=== PATIENT | male | born 1990 | race Two or more races ===

== ENCOUNTER 2018-09-22 11:23 | Inpatient (IN) | payer MEDICAID ==
[2018-09-23] MEDS ORDERED: ONDANSETRON 4 MG/2 ML VIAL IVP PRN (10:22)
[2018-09-23] MEDS: VANCOMYCIN HCL/NORMAL SALINE 250 ML IV SCH ×2 (11:12→23:21)
[2018-09-23] MEDS: oxyCODONE IR 5 MG TAB PO PRN ×4 (11:16→21:18)
--- NOTE | 2018-09-23 12:31 | NEUSURGPN ---
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 Removed without complication. Patient placed in cervical collar prior to final stabilization ring removed. There is purulent discharge noted at right anterior pin site and facial cellulitis. Plan: Blood cultures CBC ordered Patient should remain in hard cervical collar at all times Will tentatively plan for OR for surgical fusion in the up coming days, once cleared by ID. Awaiting ID consult Discussed with Dr. Vigil Neurosurgery Physical Exam - Vitals, I&O, Labs I and O 09/22/18 09/23/18 09/24/18 05:59 05:59 05:59 Weight 63.503 kg Vital Signs Temp Pulse Resp BP Pulse Ox 36.9 C 89 13 106/72 95 09/23/18 11:32 09/23/18 11:32 09/23/18 11:32 09/23/18 11:32 09/23/18 11:32 ICD10 Worksheet Patient Problems: Problems Problem Status Onset Cellulitis Acute Cervical spine fracture Acute - ICD10 Problem Qualifiers (1) Cervical spine fracture (2) Cellulitis
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
[2018-09-23] MEDS: METHOCARBAMOL 750 MG TAB PO SCH ×2 (16:36→21:18)
--- NOTE | 2018-09-23 17:33 | PDMN ---
Medical Necessity Medical necessity: Pt meets IP criteria as of 09/23/2018 per and MCG M-70 ( cellulitis); est los > 2 mn for ongoing tx and management of facial cellulitis secondary to halo pin site infection; requiring surgical intervention, infectious disease consultation and IV ABX.
[2018-09-23] MEDS ORDERED: IOPAMIDOL (ISOVUE 370) 100 ML BTL IV ONE (18:35)
[2018-09-24] MEDS: oxyCODONE IR 5 MG TAB PO PRN ×5 (00:27→23:59)
--- NOTE | 2018-09-24 07:22 | NEUSURGPN ---
Assessment/Plan: 28 yo male with C2 fracture, infected pin site from Halo. Halo removed and placed in cervical hard collar. Needs posterior C1/2 fusion - neuro stable - pain control - awaiting clearance from ID to proceed with posterior C1/2 fusion - blood cultures NGTD - please contact neurosurgery with changes in neuro status/exam Discussed with Dr. Vigil. Subjective: Doing well this morning. No UE/LE symptoms. Mild neck pain. Objective: Awake. Alert. PERRL. EOMI Facial expression symmetrical- has some left sided facial edema Muscle strength full at 5/5 - Physician Discussed Patient with Dr.: Vigil Neurosurgery Physical Exam - Vitals, I&O, Labs I and O 09/23/18 09/24/18 09/25/18 05:59 05:59 05:59 Weight 63.503 kg Other: Number of Voids Toilet 2 Microbiology 09/23/18 18:30 Gram Stain - Final Scalp - Eswab Vital Signs Temp Pulse Resp BP Pulse Ox 36.7 C 74 15 92/62 L 92 09/24/18 04:00 09/24/18 04:00 09/24/18 04:00 09/24/18 04:00 09/24/18 04:00 Laboratory Results 09/23/18 12:50 09/23/18 17:00 ICD10 Worksheet Patient Problems: Problems Problem Status Onset Cellulitis Acute Cervical spine fracture Acute
--- NOTE | 2018-09-24 08:45 | PCMIDPN ---
Assessment/Plan: # Left facial cellulitis emanating from halo pinhole, improved swelling, erythema today. CT scan showed no abscess --hold off on surgery for now and monitor for more clinical improvement --continue IV vancomycin, will check trough tomorrow and creatinine --check labs in AM --discussed w Dr. Vigil Medications Vancomycin 1 g IV q.12 hours, # 2 Microbiology 09/24 blood cultures (2) pending 09/24 wound culture Gram stain 3+ GPCs 1+ Gram-negative leander Subjective: patient feels pain L face is better no other c/o denies neck pain Objective: Vital Signs Temp Pulse Resp BP Pulse Ox 36.8 C 61 14 101/60 92 09/24/18 07:42 09/24/18 07:42 09/24/18 07:42 09/24/18 07:42 09/24/18 07:42 Microbiology 09/23/18 18:30 Gram Stain - Final Scalp - Eswab Laboratory Results 09/23/18 12:50 09/23/18 17:00 C-Reactive Protein 78.6 mg/L (<10.0) H 09/23/18 17:00 - Physical Exam General Appearance: alert EENT: other (good dentition), No scleral icterus, No thrush Respiratory: lungs clear, No accessory muscle use Neck: other (hard collar in place) Extremities: No pedal edema Abdomen: non-tender, soft Skin: erythema (L face: forehead, eyelids, cheek but fainter than yesterday), other (swelling L face but improved; pinhole L alevism w scab in place) Neuro/Psych: alert, normal mood/affect, oriented x 3 - Line/s PIV Lines: other (L forearm), No drainage, No erythema - Time Spent With Patient Time Spent with Patient: greater than 35 minutes Time Spent with Patient: Greater than 35 minutes spent on this patients care, greater than 50% of time spent counseling, educating, and coordinating care regarding the above mentioned plan. ICD10 Worksheet Patient Problems: Problems Problem Status Onset Cellulitis Acute Cervical spine fracture Acute
[2018-09-24] MEDS: METHOCARBAMOL 750 MG TAB PO SCH ×3 (10:29→22:45)
[2018-09-24] MEDS: VANCOMYCIN HCL/NORMAL SALINE 250 ML IV SCH ×2 (12:09→22:45)
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
[2018-09-25] MEDS: oxyCODONE IR 5 MG TAB PO PRN ×3 (03:57→22:50)
[2018-09-25 06:21] LABS: PLATELET COUNT 283 10^3/uL (150-400)
[2018-09-25] MEDS: ceFAZolin 2 GM/DEXTROSE 100 ML IV SCH ×3 (07:58→21:53)
[2018-09-25] MEDS: METHOCARBAMOL 750 MG TAB PO SCH ×3 (08:01→22:59)
--- NOTE | 2018-09-25 08:27 | PCMIDPN ---
Assessment/Plan: # Left facial cellulitis emanating from halo pinhole, complete resolution of erythema, mild swelling remains. White count has normalized. --patient is cleared for surgery today --adjust antibiotics to cefazolin 2 g IV Q 8. Will use this higher dose today as patient is going to the OR, could step-down tomorrow Medications Vancomycin 1 g IV q.12 hours, # 3 Microbiology 09/24 blood cultures (2) pending 09/24 wound culture Gram stain 3+ GPCs 1+ Gram-negative leander: MSSA Subjective: Patient describes some pain the still at the pin hole from the halo No diarrhea, no rash Objective: Vital Signs Temp Pulse Resp BP Pulse Ox 36.6 C 54 L 14 101/57 L 90 L 09/25/18 08:00 09/25/18 08:00 09/25/18 08:00 09/25/18 08:00 09/25/18 08:00 Microbiology 09/23/18 18:30 Gram Stain - Final Scalp - Eswab Laboratory Results 09/25/18 05:06 09/25/18 05:06 09/24/18 09/25/18 09/26/18 05:59 05:59 05:59 Intake Total 1250 Balance 1250 C-Reactive Protein 78.6 mg/L (<10.0) H 09/23/18 17:00 - Physical Exam General Appearance: alert, no apparent distress, non-toxic EENT: pharynx normal, No scleral icterus Respiratory: No accessory muscle use Neck: other (Wearing cervical collar) Extremities: No pedal edema Skin: other (Mild swelling over left baptist and lateral face, eye swelling almost resolved; a pinhole remains tender but is scabbing over) Neuro/Psych: alert, normal mood/affect, oriented x 3 - Time Spent With Patient Time Spent with Patient: greater than 25 minutes Time Spent with Patient: Greater than 25 minutes spent on this patients care, greater than 50% of time spent counseling, educating, and coordinating care regarding the above mentioned plan. ICD10 Worksheet Patient Problems: Problems Problem Status Onset Cellulitis Acute Cervical spine fracture Acute
--- NOTE | 2018-09-25 09:32 | NEUSURGPN ---
Assessment/Plan: Assessment/Plan: 28 yo male with C2 fracture, infected pin site from Halo. Halo removed and placed in cervical hard collar. Needs posterior C1/2 fusion - neuro stable and still has pain around affected pin site from infection - pain control - Cleared from ID to proceed with surgery today for C1/2 fusion - blood cultures NGTD over 36 hours -Will continue abx per ID recommendations - appreciate their expertise - please contact neurosurgery with changes in neuro status/exam - Consents left at bedside for patient to sign and read over - Discussed with Dr. Vigil Subjective: Doing ok this morning, has pin site tenderness still but facial swelling is much improved. Objective: Awake. Alert. PERRL. EOMI Facial expression symmetrical- has some left sided facial edema but this is much improved today Hard cervical collar in place Muscle strength full at 01/11 Neurosurgery Physical Exam - Vitals, I&O, Labs I and O 09/24/18 09/25/18 09/26/18 05:59 05:59 05:59 Intake Total 1250 Balance 1250 Weight 63.503 kg Intake: Oral (ml) 1000 IV Infused (ml) 250 Vancomycin HCl/Normal 250 Saline 250 ml @ 250 mls/ hr IV Q12H MANOJ Rx#: [id number] Other: Number of Voids Toilet 2 3 Microbiology 09/23/18 18:30 Gram Stain - Final Scalp - Eswab Vital Signs Temp Pulse Resp BP Pulse Ox 36.6 C 54 L 14 101/57 L 90 L 09/25/18 08:00 09/25/18 08:00 09/25/18 08:00 09/25/18 08:00 09/25/18 08:00 Laboratory Results 09/25/18 05:06 09/25/18 05:06 ICD10 Worksheet Patient Problems: Problems Problem Status Onset Cellulitis Acute Cervical spine fracture Acute
[2018-09-25] MEDS ORDERED: THROMBIN (BOVINE) 5,000 UNIT VIAL TP ONE (14:28)
[2018-09-25] MEDS ORDERED: CHLORHEXIDINE GLUC HIBICLENS 118 ML BTL TP ONE (14:28)
[2018-09-25] MEDS ORDERED: BUPIVACAINE 0.25% 30 ML SDV ONE (14:28)
[2018-09-25] MEDS ORDERED: EPINEPHrine 1 MG/ML INJ ONE (14:29)
[2018-09-25] MEDS ORDERED: BACITRACIN 50,000 UNITS/10 ML SYR IRR ONE (14:29)
[2018-09-25] MEDS ORDERED: MIDAZOLAM 2 MG/2 ML VIAL IVP ONE (15:24)
--- NOTE | 2018-09-25 15:24 | PDANEPAE ---
ANE History of Present Illness Here for C1-2 fusion ANE Past Medical History - Cardiovascular History Hx Hypertension: No Hx Arrhythmias: No Hx Chest Pain: No Hx Coronary Artery / Peripheral Vascular Disease: No Hx CHF / Valvular Disease: No Hx Palpitations: No - Pulmonary History Hx COPD: No Hx Asthma/Reactive Airway Disease: No Hx Recent Upper Respiratory Infection: No Hx Oxygen in Use at Home: No Hx Sleep Apnea: No Sleep Apnea Screening Result - Last Documented: Negative - Endocrine History Hx Diabetes: No Hypothyroid: No Hyperthyroid: No Obesity: no ANE Review of Systems Review of systems is: negative Review of Systems: - Exercise capacity Exercise capacity: >=4 METS ANE Patient History - Allergies Allergies/Adverse Reactions: No Known Allergies Allergy (Verified 09/23/18 10:28) - Home Medications Home medications: home medication list seen and reviewed Home Medications: oxyCODONE/APAP 5/325 [Percocet 5/325 (*)] 1 tab PO DAILY PRN 04/17/18 [Last Taken 09/21/18] Cephalexin [Keflex (*)] 500 mg PO QID 09/23/18 [Last Taken 09/23/18] Ibuprofen [Motrin (*)] 200 mg PO DAILY PRN 09/23/18 [Last Taken 09/21/18] Lidocaine 5% [Lidoderm 5% Patch] 1 ea TD DAILY PRN 09/23/18 [Last Taken Unknown] - NPO status NPO Since - Liquids (Date): 09/25/18 NPO Since - Liquids (Time): 00:00 NPO Since - Solids (Date): 09/25/18 NPO Since - Solids (Time): 00:00 - Anes Hx Anes Hx: no prior problems - Smoking Hx Smoking Status: Light smoker ANE Labs/Vital Signs - Labs Result Diagrams: 09/25/18 05:06 09/25/18 05:06 - Vital Signs Blood Pressure: 100/55 Heart Rate: 57 Respiratory Rate: 16 O2 Sat (%): 89 Height: 170.18 cm Weight: 63.503 kg ANE Physical Exam - Airway Neck exam: decreased ROM, C-collar in place Mallampati Score: Class 3 Mouth exam: normal dental/mouth exam - Pulmonary Pulmonary: no respiratory distress - Cardiovascular Cardiovascular: regular rate and rhythym - ASA Status ASA Status: I ANE Anesthesia Plan Anesthesia Plan: general endotracheal anesthesia Lines/Monitors: additional IV Specialized Airway: video laryngoscope
[2018-09-25] MEDS ORDERED: LR 1,000 ML IV ONE (15:29)
[2018-09-25] MEDS ORDERED: PROPOFOL/EMULSION 500 MG/50 ML BOTTLE IV ONE ×2 (15:30→19:21)
[2018-09-25] MEDS ORDERED: fentaNYL 100 MCG/2 ML INJ ONE ×3 (15:30→21:23)
[2018-09-25] MEDS ORDERED: REMIFENTANIL HCL 1 MG VIAL ONE ×2 (15:30→20:00)
[2018-09-25] MEDS ORDERED: LIDOCAINE 2% 5 ML SDV ONE (15:34)
[2018-09-25] MEDS ORDERED: ROCURONIUM 50 MG/5 ML VIAL ONE (15:41)
[2018-09-25] MEDS ORDERED: fentaNYL 100 MCG/2 ML INJ IV ONE (16:30)
[2018-09-25] MEDS ORDERED: MIDAZOLAM 2 MG/2 ML VIAL ONE (17:29)
[2018-09-25] MEDS ORDERED: ONDANSETRON 4 MG/2 ML VIAL ONE (18:21)
[2018-09-25] MEDS ORDERED: DEXAMETHASONE 4 MG/ML VIAL ONE (18:21)
[2018-09-25] MEDS ORDERED: HYDROmorphONE/DILAUDID 2 MG/ML INJ ONE ×2 (19:18→21:41)
[2018-09-25] MEDS ORDERED: THROMBIN (BOVINE) 20,000 UNIT VIAL TP ONE (19:21)
[2018-09-25] MEDS ORDERED: oxyCODONE IR 5 MG TAB PO PRN (20:35)
[2018-09-25] MEDS ORDERED: ACETAMINOPHEN 500 MG TAB PO PRN (20:35)
[2018-09-25] MEDS ORDERED: NALOXONE HCL 0.4 MG/ML INJ IVP PRN (20:35)
[2018-09-25] MEDS ORDERED: HYDROCODONE/APAP 5/325 TAB PO PRN (20:35)
[2018-09-25] MEDS ORDERED: LR 500 ML IV PRN (20:35)
[2018-09-25] MEDS ORDERED: METOCLOPRAMIDE 10 MG/2 ML VIAL IVP PRN (20:35)
[2018-09-25] MEDS ORDERED: ONDANSETRON 4 MG/2 ML VIAL IVP PRN (20:35)
[2018-09-25] MEDS ORDERED: PROMETHAZINE HCL 25 MG/ML INJ IVP PRN (20:35)
[2018-09-25] MEDS ORDERED: MEPERIDINE 25 MG/0.5 ML AMP IVP PRN (20:35)
[2018-09-25] MEDS ORDERED: ALBUTEROL 3 ML DEYVIAL IH PRN (20:35)
--- NOTE | 2018-09-25 20:35 | POSTANESTH ---
Post Anesthetic Evaluation Cardiovascular Status: Normal, Stable Respiratory Status: Normal, Stable Level of Consciousness/Mental Status: Can Participate in Eval, Alert and Oriented Pain Control: Adequate, Prn Tx Ordered Nausea/Vomiting Control: Adequate, Prn Tx Ordered Complications Possibly Related to Anesthesia: None Noted
[2018-09-25] MEDS ORDERED: MEPERIDINE 25 MG/0.5 ML AMP ONE (21:23)
[2018-09-25] MEDS: fentaNYL 100 MCG/2 ML INJ IVP PRN ×2 (21:26→21:35)
--- NOTE | 2018-09-25 21:27 | POSTOPPROG ---
Post Op Note Date of Operation: 09/25/18 Surgeon: Jarek Vigil Host/Hostess Restaurant: Kaelyn Doe PA-C Anesthesia: GET(General Endotracheal) Pre-op Diagnosis: C2 fracture Post-op Diagnosis: C2 fracture Procedure: Posterior C1/2 fusion Inf/Abcess present in the surg proc area at time of surgery?: No Depth: Deep Incisional (Fascial) EBL: 50-100 Drains: Zack Callejas Plan Plan: 28 yo male s/p posterior C1/2 fusion - neuro checks - pain control - hard collar - NAHOMY drain x 1 - postop x-rays in am - PT/OT Exam Patient seen in recovery. Awake. Alert. PERRL. EOMI Following commands, LESTER Strength full Incision with dressing, NAHOMY drain in place
[2018-09-25] MEDS ORDERED: diphenhydrAMINE 25 MG CAP PO PRN (21:28)
[2018-09-25] MEDS ORDERED: LACTULOSE 20 GM/30 ML UDCUP PO PRN (21:28)
[2018-09-25] MEDS ORDERED: POLYETHYLENE GLYCOL 3350 17 GM PKT PO PRN (21:28)
[2018-09-25] MEDS ORDERED: BISACODYL 10 MG SUPP PR PRN (21:28)
[2018-09-25] MEDS ORDERED: MAGNESIUM HYDROXIDE 30 ML UDCUP PO PRN (21:28)
[2018-09-25] MEDS ORDERED: DIAZEPAM 5 MG/ML 1 ML SYR ONE (21:41)
[2018-09-25] MEDS: HYDROmorphONE/DILAUDID 2 MG/ML INJ IVP PRN ×3 (21:45→22:13)
[2018-09-25] MEDS: DIAZEPAM 5 MG/ML 1 ML SYR IVP PRN ×2 (21:58→22:15)
[2018-09-25] MEDS: HYDROmorphONE/DILAUDID 1 MG/ML INJ IVP PRN (22:50)
[2018-09-26] MEDS ORDERED: LR 500 ML IV PRN (00:25)
[2018-09-26] MEDS ORDERED: ONDANSETRON 4 MG/2 ML VIAL IVP PRN (00:25)
[2018-09-26] MEDS ORDERED: DIAZEPAM 5 MG/ML 1 ML SYR IVP PRN (00:25)
[2018-09-26] MEDS ORDERED: HYDROmorphONE/DILAUDID 1 MG/ML INJ IVP PRN (00:25)
[2018-09-26] MEDS ORDERED: fentaNYL 100 MCG/2 ML INJ IVP PRN (00:25)
[2018-09-26] MEDS ORDERED: OXYCODONE/APAP 5/325 TAB PO PRN (00:25)
[2018-09-26] MEDS ORDERED: HYDROCODONE/APAP 5/325 TAB PO PRN (00:25)
[2018-09-26] MEDS ORDERED: ACETAMINOPHEN 500 MG TAB PO PRN (00:25)
[2018-09-26] MEDS ORDERED: ALBUTEROL 3 ML DEYVIAL IH PRN (00:25)
[2018-09-26] MEDS ORDERED: NALOXONE HCL 0.4 MG/ML INJ IVP PRN (00:25)
[2018-09-26] MEDS: oxyCODONE IR 5 MG TAB PO PRN ×7 (01:21→21:54)
[2018-09-26] MEDS: HYDROmorphONE/DILAUDID 1 MG/ML INJ IVP PRN ×5 (01:21→20:16)
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
[2018-09-26] MEDS: ceFAZolin 2 GM/DEXTROSE 100 ML IV SCH ×3 (04:55→21:54)
[2018-09-26] MEDS: METHOCARBAMOL 750 MG TAB PO SCH ×3 (08:10→21:54)
--- NOTE | 2018-09-26 09:55 | PCMIDPN ---
Assessment/Plan: # Left facial cellulitis emanating from halo pinhole, continued improved --continue Ancef --ID will continue to follow to determine duration, with such rapid improvement tentative 7-10d Medications, abx#4 cefazolin 2gm IV q8, #2 Microbiology 09/24 blood cultures (2) pending 09/24 wound culture Gram stain 3+ GPCs 1+ Gram-negative leander: MSSA Subjective: reports neck pain very severe ambulating in the room w/o difficulty Objective: Vital Signs Temp Pulse Resp BP Pulse Ox 36.8 C 75 17 96/63 L 93 09/26/18 08:00 09/26/18 08:00 09/26/18 08:00 09/26/18 08:00 09/26/18 08:00 Microbiology 09/23/18 18:30 Gram Stain - Final Scalp - Eswab Wound Culture - Final Staphylococcus Aureus Laboratory Results 09/25/18 05:06 09/25/18 05:06 09/25/18 09/26/18 09/27/18 05:59 05:59 05:59 Intake Total 1250 2160 Output Total 920 Balance 1250 1240 C-Reactive Protein 78.6 mg/L (<10.0) H 09/23/18 17:00 - Physical Exam General Appearance: alert, no apparent distress EENT: No scleral icterus Respiratory: lungs clear, No accessory muscle use Extremities: No pedal edema Abdomen: non-tender, soft Male Genitalia: No rodriguez Skin: warm/dry, other (pinhole L adventist completely scabbed, much less edema L face in general, still mild swelling over L eyelid, EOMI without pain w movement ), No rash Neuro/Psych: alert, normal mood/affect, oriented x 3 - Time Spent With Patient Time Spent with Patient: greater than 25 minutes Time Spent with Patient: Greater than 25 minutes spent on this patients care, greater than 50% of time spent counseling, educating, and coordinating care regarding the above mentioned plan. ICD10 Worksheet Patient Problems: Problems Problem Status Onset Cervical spine fracture Acute Cellulitis Acute
--- NOTE | 2018-09-26 10:10 | NEUSURGPN ---
Assessment/Plan: 28 yo male s/p posterior C1/2 fusion POD1 with left sided facial cellulitis from Halo pin site. -Optimize pain control -hard collar -Continue NAOHMY drain -postop x-rays in am -PT/OT -Appreciated medicine follow for cellulitis, will defer on abx duration and management -Discussed with Dr. Vigil -Please notify NS with any change in neuro/motor exam Subjective: Posterior neck pain Objective: NAD A&Ox3 MAEx4 5/5 and equal in BUE and BLE. Incision c/d/i. Facial swelling/ erythema improving. NAHOMY drain serosanguineous - Physician Discussed Patient with : [facility] Physical Exam - Vitals, I&O, Labs I and O 09/25/18 09/26/18 09/27/18 05:59 05:59 05:59 Intake Total 1250 2160 Output Total 920 Balance 1250 1240 Weight 63.503 kg Intake: Oral (ml) 1000 460 IV Intake (ml) 1500 IV Infused (ml) 250 200 Vancomycin HCl/Normal 250 Saline 250 ml @ 250 mls/ hr IV Q12H MANOJ Rx#: [id number] ceFAZolin 2 GM/DEXTROSE 200 100 ml @ 200 mls/hr IV Q8HRS MANOJ Rx#:[id number] Output: Urine (ml) 750 Urinal 750 Estimated Blood Loss (ml) 100 Emesis (ml) 0 NAHOMY Drain Output (ml) 70 Posterior Neck Zack 70 [place]le[place] Other: Intake Quantity Yes Sufficient Output Comment Toilet x3 voids in pre-op Number of Voids Toilet 3 1 1 Urinal 2 Number of Stools Toilet 1 Microbiology 09/23/18 18:30 Gram Stain - Final Scalp - Eswab Wound Culture - Final Staphylococcus Aureus Vital Signs Temp Pulse Resp BP Pulse Ox 36.8 C 75 17 96/63 L 93 09/26/18 08:00 09/26/18 08:00 09/26/18 08:00 09/26/18 08:00 09/26/18 08:00 Laboratory Results 09/25/18 05:06 09/25/18 05:06 ICD10 Worksheet Patient Problems: Problems Problem Status Onset Cellulitis Acute Cervical spine fracture Acute - ICD10 Problem Qualifiers (1) Cervical spine fracture (2) Cellulitis
--- NOTE | 2018-09-26 16:56 | ASMTCMCOM ---
CM Note CM Note Notes: Pt had surgery yesterday. PT rec home, OT rec home/C. Pt has supportive parents he will d/c to. Pt still on IV antibiotics, CM to follow in case this is a d/c need. Date Signed: 09/26/2018 04:55 PM Electronically Signed By:ESHA Cotton
[2018-09-27] MEDS: oxyCODONE IR 5 MG TAB PO PRN ×2 (00:40→05:00)
[2018-09-27] MEDS: HYDROmorphONE/DILAUDID 1 MG/ML INJ IVP PRN ×2 (02:19→04:57)
[2018-09-27] MEDS: ceFAZolin 2 GM/DEXTROSE 100 ML IV SCH (05:38)
[2018-09-27] MEDS: HYDROmorphONE/DILAUDID 2 MG TAB PO PRN ×5 (07:59→23:54)
[2018-09-27] MEDS: ENOXAPARIN 40 MG/0.4 ML SYR SC SCH (08:00)
[2018-09-27] MEDS: METHOCARBAMOL 750 MG TAB PO SCH ×3 (08:00→21:09)
--- NOTE | 2018-09-27 11:00 | SOAPPROG ---
SOYANCY Progress Note Assessment/Plan: Assessment: 28 yo male s/p posterior C1/2 fusion POD2 with left sided facial cellulitis from Halo pin site. -Optimize pain control -hard collar -Continue NAHOMY drain -postop x-rays when today. -PT/OT -Appreciated medicine follow for cellulitis, will defer on abx duration and management -Please notify NS with any change in neuro/motor exam Subjective: Just woke up. Posterior neck pain is controlled currently. Denies new numbness, tingling or weaknes. Objective: NAD A&Ox3 MAEx4 5/5 and equal in BUE and BLE. Incision c/d/i. Facial swelling/ erythema improving. NAHOMY drain serosanguineous: 70 ml 09/27/18 10:59 09/27/18 11:19 09/27/18 11:20 Objective: Vital Signs Temp Pulse Resp BP Pulse Ox 36.9 C 76 13 105/71 95 09/27/18 07:51 09/27/18 07:51 09/27/18 07:51 09/27/18 07:51 09/27/18 07:51 Laboratory Results 09/25/18 05:06 09/25/18 05:06 09/26/18 09/27/18 09/28/18 05:59 05:59 05:59 Intake Total 2160 1340 Output Total 920 70 Balance 1240 1270 ICD10 Worksheet Patient Problems: Problems Problem Status Onset Cellulitis Acute Cervical spine fracture Acute
--- NOTE | 2018-09-27 12:25 | PCMIDPN ---
Assessment/Plan: # Left facial cellulitis emanating from halo pinhole, cellulitis basically resolved today --2 more days PO keflex (ordered in NOV) --dc IV cefazolin --call ID for questions, no ID f/u needed Medications, abx#5 cefazolin 2gm IV q8, #3 Microbiology 09/24 blood cultures (2) pending 09/24 wound culture Gram stain 3+ GPCs 1+ Gram-negative leander: MSSA Subjective: Patient's only complaint is a regarding neck pain Objective: Vital Signs Temp Pulse Resp BP Pulse Ox 36.9 C 81 13 109/78 94 09/27/18 11:58 09/27/18 11:58 09/27/18 11:58 09/27/18 11:58 09/27/18 11:58 Laboratory Results 09/25/18 05:06 09/25/18 05:06 09/26/18 09/27/18 09/28/18 05:59 05:59 05:59 Intake Total 2160 1340 Output Total 920 70 Balance 1240 1270 C-Reactive Protein 78.6 mg/L (<10.0) H 09/23/18 17:00 - Physical Exam General Appearance: alert, no apparent distress EENT: No thrush Respiratory: No accessory muscle use Cardiac/Chest: regular rate, rhythm Skin: other (Facial erythema and swelling completely resolved, pinpoint scabs remain left sikh, no purulence) Neuro/Psych: no motor/sensory deficits, alert, normal mood/affect, oriented x 3 - Time Spent With Patient Time Spent with Patient: greater than 25 minutes (Care coordinated with neurosurgical team) Time Spent with Patient: Greater than 25 minutes spent on this patients care, greater than 50% of time spent counseling, educating, and coordinating care regarding the above mentioned plan. ICD10 Worksheet Patient Problems: Problems Problem Status Onset Cellulitis Acute Cervical spine fracture Acute
[2018-09-27] MEDS: CEPHALEXIN 500 MG CAP PO SCH ×3 (13:10→23:54)
[2018-09-28] MEDS: HYDROmorphONE/DILAUDID 2 MG TAB PO PRN ×3 (04:31→13:54)
[2018-09-28] MEDS: CEPHALEXIN 500 MG CAP PO SCH ×2 (05:29→11:56)
[2018-09-28 08:08] VITALS: BP 108/69
--- NOTE | 2018-09-28 09:13 | SOAPPROG ---
SOAP Progress Note Assessment/Plan: Assessment: 28 yo male s/p posterior C1/2 fusion POD #3 with left sided facial cellulitis ( MSSA) from Halo pin site which has essentially resolved per ID. -Optimize pain control -hard collar -Continue NAHOMY drain -PT/OT - Keflex for one more day -Please notify NS with any change in neuro/motor exam Subjective: Asleep, wakes easily and complains of moderate posterior neck pain which is controlled currently. Denies new numbness, tingling or weakness. Objective: NAD A&Ox3 MAEx4 5/5 and equal in BUE and BLE. Incision c/d/i. NAHOMY: 30ml Post op xrays show well postioned hardware 09/28/18 09:12 Objective: Vital Signs Temp Pulse Resp BP Pulse Ox 36.8 C 61 11 L 108/69 91 L 09/28/18 08:00 09/28/18 08:00 09/28/18 08:00 09/28/18 08:00 09/28/18 08:00 Laboratory Results 09/25/18 05:06 09/25/18 05:06 09/27/18 09/28/18 09/29/18 05:59 05:59 05:59 Intake Total 1340 1400 Output Total 70 30 Balance 1270 1370 ICD10 Worksheet Patient Problems: Problems Problem Status Onset Cellulitis Acute Cervical spine fracture Acute
[2018-09-28] MEDS: METHOCARBAMOL 750 MG TAB PO SCH (09:50)
[2018-09-28] MEDS: ENOXAPARIN 40 MG/0.4 ML SYR SC SCH (09:51)
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
== END 2018-09-28 14:28 | disposition home or self-care (01) | DRG 321 ==
LOC: F3N 09-23 08:58 → OBSVTOIN 09-23 10:21
PROVIDERS: ADMIT Neurological Surgery; ATTEND Neurological Surgery
PROC: 4A1004G Monitoring of Central Nervous Electrical Activity, Intraoperative, Open Approach (ICD-10-PCS; principal; 2018-09-25 15:30)
PROC: 0RG1071 Fusion of Cervical Vertebral Joint with Autologous Tissue Substitute, Posterior Approach, Posterior Column, Open Approach (ICD-10-PCS; principal; 2018-09-25 15:30)
PROC: 0RG10AJ Fusion of Cervical Vertebral Joint with Interbody Fusion Device, Posterior Approach, Anterior Column, Open Approach (ICD-10-PCS; principal; 2018-09-25 15:30)
DX: S12.100A Unspecified displaced fracture of second cervical vertebra, initial encounter for closed fracture (principal); T85.79XA Infection and inflammatory reaction due to other internal prosthetic devices, implants and grafts, initial encounter; V49.20XA Unspecified car occupant injured in collision with unspecified motor vehicles in nontraffic accident, initial encounter; B95.61 Methicillin susceptible Staphylococcus aureus infection as the cause of diseases classified elsewhere; L03.211 Cellulitis of face; Z72.0 Tobacco use
CPT/HCPCS: 80307; 97161-GP; 97166-GO; 97530-GO; 97535-GO; C1713; C1762; G0480; J0171; J0690; J1100; J1170; J1650; J2175; J2250; J2270; J2405; J2704; J3010; J3360; J3370; Q9967